=== PATIENT | female | born 1985 | race Hispanic/Latino ===

== ENCOUNTER 2018-01-12 17:40 | Emergency (ER) | payer MEDICAID, OTHER ==
[2018-01-12 18:13] VITALS: BMI 24.1
[2018-01-12 18:17] VITALS: BP 118/64; PULSE 100; RESP 20; TEMP 100.1; O2SAT 100
--- NOTE | 2018-01-12 19:12 | C.PDOC ---
History Of Present Illness 32 year old female with PMHx of bipolar disorder and schizophrenia presents to the ED for evaluation stating she does not feel well. Patient is in a manic states with rapid and non coherent speech. Patient denies SI/HI, hallucinations , CP, SOB, weakness, numbness. Time Seen by Provider: 01/12/18 19:11 Chief Complaint (Nursing): Psychiatric Evaluation History Per: Patient History/Exam Limitations: clinical condition (manic) Onset/Duration Of Symptoms: Days Current Symptoms Are (Timing): Still Present Suicide/Self Injury Attempted (Context): None Modifying Factor(s): None Associated Symptoms: Agitation. denies: Depression, Suicidal Thoughts, Suicidal Plan Recent travel outside of the [place]: No Additional History Per: Patient Past Medical History Reviewed: Historical Data, Nursing Documentation, Vital Signs Vital Signs: Last Vital Signs Temp 100.1 F H 01/12/18 18:13 Pulse 100 H 01/12/18 18:13 Resp 20 01/12/18 18:13 BP 118/64 01/12/18 18:13 Pulse Ox 100 01/12/18 19:40 - Medical History PMH: Anxiety, Bipolar Disorder, Depression, Schizophrenia Surgical History: No Surg Hx Family History: States: Unknown Family Hx - Social History Hx Tobacco Use: No Hx Alcohol Use: No Hx Substance Use: No - Immunization History Hx Tetanus Toxoid Vaccination: No Hx Influenza Vaccination: No Hx Pneumococcal Vaccination: No Review Of Systems Constitutional: Negative for: Fever, Chills Cardiovascular: Negative for: Chest Pain Respiratory: Negative for: Shortness of Breath Neurological: Negative for: Weakness, Numbness Psych: Positive for: Anxiety. Negative for: Depression, Suicidal ideation Physical Exam - Physical Exam Appears: Non-toxic, Other (Manic ) Skin: Warm, Dry Head: Normacephalic Eye(s): bilateral: Normal Inspection Nose: No Discharge Oral Mucosa: Moist Neck: Normal ROM, Supple Chest: Symmetrical Cardiovascular: Rhythm Regular, No Murmur Respiratory: No Rales, No Rhonchi, No Wheezing Gastrointestinal/Abdominal: Soft, No Tenderness, No Guarding, No Rebound Extremity: Normal ROM, No Tenderness, No Swelling Neurological/Psych: Oriented x3 Gait: Steady ED Course And Treatment O2 Sat by Pulse Oximetry: 100 (ON RA) Pulse Ox Interpretation: Normal Progress Note: Plan: - Labs. - Geodon 20 mg PO. - UA. went to re-examine the pt but pt had eloped Disposition Counseled Patient/Family Regarding: Studies Performed, Diagnosis - Disposition Disposition: ELOPEMENT - ER ONLY Disposition Time: 19:11 Condition: FAIR Forms: [facility] (Tristanian) - Clinical Impression Clinical Impression: Manic bipolar I disorder - Scribe Statement The provider has reviewed the documentation as recorded by the Scribe Jacques Gutierrez All medical record entries made by the Scribe were at my direction and personally dictated by me. I have reviewed the chart and agree that the record accurately reflects my personal performance of the history, physical exam, medical decision making, and the department course for this patient. I have also personally directed, reviewed, and agree with the discharge instructions and disposition.
== END 2018-01-12 19:41 | disposition left against medical advice (07) ==
LOC: C.ER 17:40
DX: F31.9 Bipolar disorder, unspecified (principal)

== ENCOUNTER → 2018-12-15 10:28 | Emergency (ER) | payer MEDICAID, OTHER ==
[2018-12-15 10:29] VITALS: BMI 24.1
== END | disposition left against medical advice (07) ==
LOC: C.ER 10:28
DX: Z02.89 Encounter for other administrative examinations (principal)